=== PATIENT | female | born 1980 ===

== ENCOUNTER 2018-04-13 06:55 | Emergency (ER) | payer OTHER ==
--- NOTE | 2018-04-13 08:05 | OBHP ---
Datetime: 04/13/2018 07:49 IP Adm Impression: , intrauterine ; No Active Labor IP Chief Complaint Other: Loss of Mucuous plug IP Admit Plan: Observation/Evaluation; Discharge home Admit Comment, IP Provider: 37yo with IUP at 36.2wks( EDC 05/09/18 ). She presents here c/o int ermittent pelvic pressure. She lost a mucus plug 3 days ago but denies VB or LOF. Pelvic pressure inf requent. Denies dysuria, frequency or scanty urination. OBHx: by - Trisomy 21 in 2013, Miscarriages X3, Current diagnosed with a downs syndrome. PMHx: Carrier for downs Syndrome. Shx- None O;Appears well Chest : Cta b/l Heart: RRR Abd: Soft,NT BS- present TOCO- Irregular FHR - Category 1 Cx:1-//-3, Vtx Assessment IUP at 36wks NST Reactive Not in Active labor. Plan: D/C Home F/U with Dr Merrill in 1 week Labor instructions given. Pelvic Type - PN: Adequate Extremities - PN: Normal Abdomen - PN: Normal Back - PN: Normal Breast - PN: Normal Lungs - PN: Normal Heart - PN: Normal Thyroid - PN: Normal Neurologic - PN: Normal HEENT - PN: Normal General - PN: Normal Presentation-Admit: Vertex FHR - Baseline A Provider: 120s Membranes, Provider: Intact Gestation - Est Wks by US: 36.2 IP Chief Complaint: Maternal discomfort NICHD Variability Prov Fetus A: Moderate 6-25bpm NICHD Accel Fetus A IP Provider: 15X15 FHR Category Provider Fetus A: Category I NICHD Decel Fetus A IP Provider: None Dilatation, Provider: 1-2 Effacement, Provider: 20 Station, Provider: -3 Genitourinary Exam: Normal DTRs - PN: Normal
[2018-04-13 12:43] VITALS: BP 115/66; PULSE 75; TEMP 98; O2SAT 98
== END 2018-04-13 16:20 | disposition home or self-care (01) ==
LOC: H.EROB2 06:55
DX: O47.03 False labor before 37 completed weeks of gestation, third trimester (principal); O26.93 Pregnancy related conditions, unspecified, third trimester; R10.2 Pelvic and perineal pain; Z3A.36 36 weeks gestation of pregnancy

== ENCOUNTER 2018-04-13 16:10 | Inpatient (IN) | payer OTHER ==
[~2018-04-13 16:10] MED LIST: Oxytocin 30 units/LR 500ML 30 U/500 ML BAG IV ONE
[2018-04-13 16:16] VITALS: BMI 29.3
[2018-04-13] MEDS ORDERED: Lactated Ringer's 1,000 ML IV SCH (16:30)
[2018-04-13] MEDS ORDERED: Lidocaine 1% Inj (20ml) ONE (16:41)
[2018-04-13 16:44] LABS: HEMOGLOBIN 12.2 g/dL (12.0-16.0); MEAN CELL VOLUME 84.7 fl (81.0-99.0); MEAN CORPUSCULAR HEMOGLOBIN 27.5 pg (27.0-31.0); MEAN CORPUSCULAR HGB CONC 32.4 g/dL (33.0-37.0); RBC 4.44 Mil/uL (3.80-5.20); RED CELL DISTRIBUTION WIDTH 14.6 % (11.5-14.5); WHITE BLOOD COUNT 17.3 K/uL (4.8-10.8)
[2018-04-13] MEDS ORDERED: Benzocaine/Menthol SPRAY TOP PRN ×2 (16:53→18:50)
--- NOTE | 2018-04-13 16:59 | OBADHP ---
Datetime: 04/13/2018 16:55 Admit Comment, IP Provider: 37yo with IUP at 36.2wks( EDC 05/09/18 ) seen earlier today c/o ctx 6/10, now 10/10 every 5-8 min, pressure, no lof, no vb, +FM. pt was 1cm dealri today . OBHx: by - Trisomy 21 in 2013, Miscarriages X3, Current diagnosed with a downs syndrome. PMHx: Carrier for downs Syndrome confimerd by amniocenties Shx- None O;Appears well Chest : Cta b/l Heart: RRR Abd: Soft,NT BS- present TOCO- Irregular FHR - Category 1 Cx:10cm Assessment IUP at 36wks NST Reactive P1 @ 36+l wks labor Plan: admit antici gbs procphylx peds Pelvic Type - PN: Adequate Extremities - PN: Normal Abdomen - PN: Normal Back - PN: Normal Breast - PN: Not Done Lungs - PN: Normal Heart - PN: Normal Thyroid - PN: Not Done Neurologic - PN: Not Done HEENT - PN: Normal General - PN: Normal Membranes, Provider: Intact Contraction Comments Provider: q 2-3 Gestation - Est Wks by US: 36.2 IP Hx Assessment: The History has been Reviewed and is Current Vital Signs Provider: Reviewed IP Chief Complaint: Uterine contractions FHR Category Provider Fetus A: Category I NICHD Decel Fetus A IP Provider: None Dilatation, Provider: 10 Genitourinary Exam: Normal DTRs - PN: Normal IP Adm Impression: Term, intrauterine IP Admit Plan: Admit to unit Datetime: 04/13/2018 07:49 IP Chief Complaint Other: Loss of Mucuous plug Presentation-Admit: Vertex FHR - Baseline A Provider: 120s NICHD Variability Prov Fetus A: Moderate 6-25bpm NICHD Accel Fetus A IP Provider: 15X15 Effacement, Provider: 20 Station, Provider: -3
--- NOTE | 2018-04-13 17:01 | OBDS ---
MATERNAL INFORMATION Provider Comments: pt was fully dilated and pushing. atrumatic, sponatneosu deiery in OP presenstati on, no nuchal cord noted. aturmatic, speontantous delivery of nateir follweod by posterior shoulder f ollweod by deliveyr of body. both oral and nasal passages of immanuel baby were bulb suctione. umbicla cor d clamped and cut and [facility] to [facility]. cord lbood collected ans ent x 2. Spotaneous de livery of intant palcenta with membranes. fundsu firm. good hemstais. second degree perienal lacerati on notd and repaired with 2-0 chormic after local aenstehia of lidocaine. Good hemostais, no cmplicat in live male ifnat op presentation ebl 300ml apgasr 9,9 no complicaitons LABOR SUMMARY EDC: 05/09/2018 00:00 No. Babies in Womb: 1 LABOR INFORMATION Onset of Labor: 04/13/2018 12:00 MEMBRANES Membranes Rupture Method: Spontaneous Rupture of Membranes: 04/13/2018 16:29 Amniotic Fluid Color: Clear Amniotic Fluid Amount: Small Amniotic Fluid Odor: Normal VAGINAL DELIVERY Laceration Repair Note: see bleow PRESENTATION/POSITION BABY A Presentation: Cephalic ASSESSMENT BABY A Infant Complications Other: amnio T21, exam as per transportation technician present for delivery
[2018-04-13] MEDS ORDERED: Oxycodone/Acetaminophen 5/325 mg Tab PO PRN ×4 (17:05→18:50)
[2018-04-14 07:32] LABS: HEMOGLOBIN 11.3 g/dL (12.0-16.0); MEAN CELL VOLUME 84.1 fl (81.0-99.0); MEAN CORPUSCULAR HEMOGLOBIN 27.6 pg (27.0-31.0); MEAN CORPUSCULAR HGB CONC 32.8 g/dL (33.0-37.0); RBC 4.11 Mil/uL (3.80-5.20); RED CELL DISTRIBUTION WIDTH 14.3 % (11.5-14.5); WHITE BLOOD COUNT 16.2 K/uL (4.8-10.8)
--- NOTE | 2018-04-14 13:41 | OBPPN ---
Datetime: 04/14/2018 13:37 PP Pain Prov: Within normal limits PP Nausea Prov: Denies PP Flatus Prov: Yes PP BM Prov: No PP Breasts Prov: Normal PP Heart Prov: Normal PP Lungs Prov: Normal PP Abdomen/Uterus Prov: Normal PP Lochia Prov: Normal PP Vulva/Perineum Prov: Normal PP CVA Tenderness Prov: Normal PP Extremities Prov: Normal PP C/S Incision Prov: Not Applicable PP Progress Prov: Normal PP Comments Phys Exam Prov: abd sofnt, nt, nd no guarign no rebud no uterien tendnerse fundus j: fim below levo of muicm vs minimal ocha, non fuls mseling ext no calf tennere, ngetivae srinath sign PP Impression Prov: Normal progression PP Plan Prov: Continue present management PP Progress Note Prov: pt seen and examiend adn reprots pian controlle with motrin, ambuaitng, bvoid ing, passign flatus, berate feedign, no fever, chills, naseu vomitn, cp, sob. vss pe see aove a/p s/p ppd 1 with downs syndrome -am cbc leukocyts, f/u repaet -pain managnet -encourage breat feedign adn mabuaitn -plan as per pediatricin as per --antiate dc home tomorrow, rto 6 week, precuating iven Vital Signs Provider PP: Reviewed; Within Normal Limits
--- NOTE | 2018-04-14 13:42 | OBDCSUM ---
Datetime: 04/14/2018 13:40 Discharged to, Provider: Home Follow up at, Provider: Dr Merrill Disch Instr Activity: Normal activity Disch Instr Diet: Regular Discharge Instructions, Provider: Routine instructions given Discharge Diagnosis, Provider: Delivery Discharge Time: 04/15/2018 13:40 Follow up in weeks, Provider: 6 we4eks Disch Referrals: None Contraception discussed, Prov: Yes Disch Activity Restrictions: No sexual activity; Nothing in vagina - [place], tampons, douche Discharge Comment, Provider: jose alfredo turner dc in am Discharge Diagnosis Prov Other: T21 Contraception after Delivery: Not Planning to Use
[2018-04-15 06:24] LABS: BASO # 0.1 K/uL (0.0-0.2); BASO % 0.4 % (0.0-2.0); EOS # 0.1 K/uL (0.0-0.7); EOS % 1.1 % (0.0-4.0); HEMOGLOBIN 11.5 g/dL (12.0-16.0); LYMPH # 3.1 K/uL (1.0-4.3); LYMPH % 23.1 % (20.0-40.0); MEAN CELL VOLUME 83.7 fl (81.0-99.0); MEAN CORPUSCULAR HEMOGLOBIN 28.2 pg (27.0-31.0); MEAN CORPUSCULAR HGB CONC 33.7 g/dL (33.0-37.0); MEAN PLATELET VOLUME 7.8 fl (7.2-11.7); MONO % 7.2 % (0.0-10.0); NEUT # 9.3 K/uL (1.8-7.0); NEUT % 68.2 % (50.0-75.0); RBC 4.07 Mil/uL (3.80-5.20); RED CELL DISTRIBUTION WIDTH 14.6 % (11.5-14.5); WHITE BLOOD COUNT 13.6 K/uL (4.8-10.8)
--- NOTE | 2018-04-15 22:00 | OBDCSUM ---
Datetime: 04/15/2018 21:57 Discharged to, Provider: Home Follow up at, Provider: dr beckwith Disch Instr Activity: Normal activity Disch Instr Diet: Regular Discharge Instructions, Provider: Routine instructions given Discharge Diagnosis, Provider: Labor Discharge Time: 04/15/2018 13:00 Follow up in weeks, Provider: 6 weeks Disch Referrals: None Contraception discussed, Prov: Yes Disch Activity Restrictions: No sexual activity; Nothing in vagina - [place], tampons, douche Contraception after Delivery: Not Planning to Use Datetime: 04/14/2018 13:40 Disch Instr Activity: Normal activity; May be up to bathroom; May be up for meals; May Shower Follow up in weeks, Provider: 6 weeks Disch Activity Restrictions: No lifting; No sexual activity; Nothing in vagina - [place], tampon s, douche
[2018-04-15 22:19] VITALS: BP 117/70; PULSE 63; RESP 20; TEMP 98.1; O2SAT 100
== END 2018-04-15 17:30 | disposition home or self-care (01) | DRG 775 ==
LOC: H.EROB2 16:10 → H.L&D 16:17 → H.OB/GYN 19:51
PROVIDERS: ADMIT Obstetrics & Gynecology; ATTEND Obstetrics & Gynecology
PROC: 0KQM0ZZ Repair Perineum Muscle, Open Approach (ICD-10-PCS; principal; 2018-04-13)
PROC: 10E0XZZ Delivery of Products of Conception, External Approach (ICD-10-PCS; 2018-04-13)
PROC: 4A1HXCZ Monitoring of Products of Conception, Cardiac Rate, External Approach (ICD-10-PCS; 2018-04-13)
DX: O60.14X0 Preterm labor third trimester with preterm delivery third trimester, not applicable or unspecified (principal); Z37.0 Single live birth; Z3A.36 36 weeks gestation of pregnancy; O35.1XX0 Maternal care for (suspected) chromosomal abnormality in fetus, not applicable or unspecified; O70.1 Second degree perineal laceration during delivery